=== PATIENT | male | born 1955 | race Caucasian/White ===

== ENCOUNTER → 2016-12-03 | Outpatient (CLI) | payer OTHER ==
[~2016-12-03] MED LIST: ANTIVERT 25MG25 MG PO; ASPIRIN 81M81 MG/TA2 PO; TRIBENZOR 5 MG; VALIUM 5MG T5 MG/TAB PO; ZOFRAN 4MG T4 MG/TAB PO
== END ==
LOC: COL.RAD 08:59
DX: C61 Malignant neoplasm of prostate (principal)
CPT/HCPCS: A9503

== ENCOUNTER 2018-12-12 16:21 | Observation (INO) | payer OTHER ==
[~2018-12-12 16:21] MED LIST changes: +AMBIEN 10MG10 MG PO; +ASPIRIN E.C. 8181 MG PO; +BRILINTA90 MG PO; +HYZAAR 25 MG-101 TAB PO; +IMDUR 30MG30 MG/TAB PO; +LIPITOR 10MG10 MG PO; +LIPITOR 40MG TA40 MG PO; +NITROSTAT0.4 MG/TAB SL; +NORVASC 5MG5 MG/TAB PO; +PROTONIX 40MG T40 MG PO; +TOPROL XL 50MG50 MG PO
[2018-12-12 16:42] LABS: BASO % 0.6 % (0.0-2.0); EOS # 0.1 (0.0-0.7); EOS % 1.7 % (0-4.0); GRAN % 56.2 % (42.2-75.2); HEMATOCRIT 42.3 % (42.0-52.0); HEMOGLOBIN 14.6 g/dl (13.5-18.0); LYMPH # 1.6 (1.2-3.4); LYMPH % 29.3 % (20.0-51.0); MEAN CELL VOLUME 91 fl (80.0-100.0); MEAN CORPUSCULAR HEMOGLOBIN 31 pg (27.0-31.0); MEAN CORPUSCULAR HGB CONC 35 g/dl (33.0-37.0); MEAN PLATELET VOLUME 10.1 fl (7.4-10.4); MONO # 0.6 (0.1-0.6); MONO % 11.3 % (1.7-9.3); PLATELET COUNT 213 K/mm3 (130-400); RED BLOOD COUNT 4.66 M/mm3 (4.20-5.60); REDCELL DISTRIBUTION WIDTH-CV 12.3 % (11.5-14.5)
[2018-12-12] MEDS ORDERED: THE MEDICINE S200 M2 PO (16:46)
[2018-12-12] MEDS ORDERED: VITAMIND3 5000 PO (16:46)
[2018-12-12] MEDS ORDERED: PLAVIX 75MG TAB75 MG PO (16:46)
[2018-12-12] MEDS ORDERED: IMDUR 60MG60 MG/TAB PO (16:46)
[2018-12-12 16:47] LABS: PROTHROMBIN TIME 11.2 SECONDS (9.7-12.8)
[2018-12-12] MEDS ORDERED: NORVASC 5MG5 MG/TAB PO (16:47)
[2018-12-12] MEDS ORDERED: HYZAAR 25 MG-101 TAB PO (16:48)
[2018-12-12 16:51] LABS: ALANINE AMINOTRANSFERASE 35 U/L (21-72); ALBUMIN 4.4 gm/dL (3.5-5.0); ALKALINE PHOSPHATASE 67 U/L (50-136); ANION GAP 9 mmol/L (7-16); AST,SGOT 33 U/L (15-37); BILIRUBIN,TOTAL 0.8 mg/dL (0.0-1.0); BLOOD UREA NITROGEN 14 mg/dL (9-20); CALCIUM 9.1 mg/dL (8.4-10.2); CARBON DIOXIDE 27 mmol/L (22-30); CHLORIDE 103 mmol/L (98-107); CREATININE, serum 0.66 mg/dL (0.66-1.25); GLUCOSE 136 mg/dL (74-106); POTASSIUM 3.7 mmol/L (3.4-5.0); SODIUM 139 mmol/L (137-145); TOTAL PROTEIN 7.1 gm/dL (6.4-8.2)
[2018-12-12 17:08] LABS: TROPONIN-I < 0.012 ng/mL (0.000-0.035)
[2018-12-12] MEDS ORDERED: TOPROL XL 50MG50 MG PO (19:06)
[2018-12-12] MEDS ORDERED: ASPIRIN E.C. 8181 MG PO (19:06)
[2018-12-12 20:00] VITALS: PULSE 60
[2018-12-12 20:37] VITALS: PULSE 60
--- NOTE | 2018-12-12 21:00 | NUR ---
Admitted from the ER with dx; chest pain,, Denies chest pain at this time- in room, IV fluids of NS at 30cc/hr, eating some supper, will be NPO after MN for heart cath
[2018-12-12 22:03] VITALS: BP 142/69; PULSE 76; TEMP 97.9
[2018-12-13] VITALS (13 sets, daily range): BP systolic 107–154; BP diastolic 50–80; PULSE 64–75; TEMP 97.5–98.2
--- NOTE | 2018-12-13 05:27 | NUR ---
NPO- slept well, quiet night- Tele on, no chest pain
[2018-12-13 06:42] LABS: BASO % 0.7 % (0.0-2.0); EOS # 0.1 (0.0-0.7); GRAN # 2.5 (1.4-6.5); GRAN % 55.9 % (42.2-75.2); HEMATOCRIT 40.2 % (42.0-52.0); HEMOGLOBIN 13.7 g/dl (13.5-18.0); LYMPH # 1.1 (1.2-3.4); LYMPH % 24.4 % (20.0-51.0); MEAN CELL VOLUME 91 fl (80.0-100.0); MEAN CORPUSCULAR HEMOGLOBIN 31 pg (27.0-31.0); MEAN CORPUSCULAR HGB CONC 34 g/dl (33.0-37.0); MEAN PLATELET VOLUME 9.8 fl (7.4-10.4); MONO # 0.7 (0.1-0.6); MONO % 16.1 % (1.7-9.3); PLATELET COUNT 200 K/mm3 (130-400); REDCELL DISTRIBUTION WIDTH-CV 12.1 % (11.5-14.5)
[2018-12-13 06:56] LABS: ALBUMIN 3.8 gm/dL (3.5-5.0); BILIRUBIN,TOTAL 0.8 mg/dL (0.0-1.0); CALCIUM 8.9 mg/dL (8.4-10.2); CHOLESTEROL RISK RATIO 3.4; CREATININE, serum 0.62 mg/dL (0.66-1.25); POTASSIUM 3.8 mmol/L (3.4-5.0); TOTAL PROTEIN 6.4 gm/dL (6.4-8.2)
--- NOTE | 2018-12-13 07:00 | NUR ---
Reported on to Phoebe CLEARY
--- NOTE | 2018-12-13 08:15 | NUR ---
Shift assessment completed; IV site on left hand CDI, NS @30ml/hr; telemetry on; denies prescence of pain
--- NOTE | 2018-12-13 08:30 | NUR ---
Refused hydrochlorothiazide 25mg tab/losartan 50mg tab (100mg), pt. states he normally takes this medication daily at 2100; Refused Docusate Sodium 100mg cap; Reported to primary nurse, Phoebe CLEARY
--- NOTE | 2018-12-13 10:00 | NUR ---
THis RN reviewed student nurse's documentation and agrees with physical assessment findings. Pt has no edema.
--- NOTE | 2018-12-13 11:47 | NUR ---
ALL SEDATION MEDICATIONS GIVEN WITH VERBAL ORDER FROM MD JONES. SEE MERGE FOR ADMIN TIMES. SEE MERGE FOR RASS AND MODERATE SEDATION ASSESSMENTS DURING AND POST PROCEDURE.
--- NOTE | 2018-12-13 13:30 | NUR ---
pt returned to room,alert, conversing, A+Ox3. Vitals stable. Rt radial site free of redness, swelling, stop in place, cap refill brisk with figners sensation intact. IV site free of redness, swelling. Will contiue to monitor, call light in reach, at bedside
--- NOTE | 2018-12-13 15:40 | NUR ---
No bleeding at rt wrist, cap refill brisk, continuing to monitor
--- NOTE | 2018-12-13 15:52 | NUR ---
SW met with patient and about discharge plans. Patient was sleeping, answered all questions. Patient lives independently at home with his and plans to return there upon discharge. Patient's PCP is Dr Ellen Sandoval and he obtains prescriptions from [facility]. Patient does not use any home health services or DME. Patient does not have a DPOA and is not interested in completing one that this time. SW does not anticipate any discharge needs.
--- NOTE | 2018-12-13 17:04 | NUR ---
This RN released remaining pressure to hemostat on Rt radial site, there is no active bleeding, no swelling or redness to wrist. cap refill brisk, pt has full mobility in figners. Pt denies SOB, dizzines. No further needs,
--- NOTE | 2018-12-13 19:20 | NUR ---
Report given to Nancy CLEARY, pt denies needs. C/o ache to rt wrist, site has no active bleed, slightly swollen along vein but no notable swelling no redness, cap refill brisk. Pt ate dinner 100%, walked halls with , returned to room with call lili ramirez
--- NOTE | 2018-12-13 20:30 | NUR ---
Initial shift assessment done- denies pain, denies chest pain/SOB, states right arm slightly sore from heart cath-denies need for pain meds at this time, requesting an ice bag for right arm-- VSS, Tele on, right radial site- no hematoma, no bleeding, open to air
[2018-12-14 00:14] VITALS: BP 124/64; PULSE 70
[2018-12-14 05:03] VITALS: BP 119/69; PULSE 69; TEMP 98.2
--- NOTE | 2018-12-14 06:05 | NUR ---
Slpet well, no requests, right radial site soft, no hematoma- overall slight swelling of lower arm- pt states no pain
[2018-12-14 07:21] VITALS: BP 124/69; PULSE 64; TEMP 98.3
[2018-12-14] MEDS ORDERED: EFFIENT10 MG PO (07:26)
[2018-12-14] MEDS ORDERED: LIPITOR 40MG TA40 MG PO (07:26)
[2018-12-14] MEDS ORDERED: ASPIRIN E.C. 8181 MG PO (07:27)
[2018-12-14] MEDS ORDERED: TOPROL XL 50MG50 MG PO (07:27)
[2018-12-14 08:10] LABS: CALCIUM 9.1 mg/dL (8.4-10.2); CREATININE, serum 0.71 (0.66-1.25); POTASSIUM 4.2 mmol/L (3.4-5.0)
--- NOTE | 2018-12-14 10:07 | NUR ---
Initial visit; Patient and his thanked Wire Steward for looking in on him and wishing him well as he is about to be discharged.
--- NOTE | 2018-12-14 11:48 | NUR ---
Patient discharged at 1045 accompanied by and to car with [facility] staff. Declined wheelchair and wished to ambulate.
== END 2018-12-14 10:45 | disposition home or self-care (01) ==
LOC: COL.ER 16:21 → MEDICAL 17:54
PROVIDERS: Family Medicine; Nurse Practitioner Family; ADMIT Hospitalist
DX: I25.110 Atherosclerotic heart disease of native coronary artery with unstable angina pectoris (principal); I10 Essential (primary) hypertension; E78.5 Hyperlipidemia, unspecified; E66.9 Obesity, unspecified; I25.2 Old myocardial infarction; Z85.46 Personal history of malignant neoplasm of prostate; K21.9 Gastro-esophageal reflux disease without esophagitis; Z79.02 Long term (current) use of antithrombotics/antiplatelets; Z79.82 Long term (current) use of aspirin; Z92.3 Personal history of irradiation; Z82.49 Family history of ischemic heart disease and other diseases of the circulatory system; Z88.5 Allergy status to narcotic agent; Z88.8 Allergy status to other drugs, medicaments and biological substances; Z88.6 Allergy status to analgesic agent
CPT/HCPCS: C1725; C1769; C1874; C1887; C9600; G0378; J1644; J1650; J2250; J3010; J7030; J7040; Q9967

== ENCOUNTER 2020-01-22 10:12 | Emergency (ER) | payer BC ==
[~2020-01-22] VITALS: Ht 180.3 cm; Wt 112.4 kg
[~2020-01-22 10:12] MED LIST changes: +EFFIENT10 MG PO; +IMDUR 60MG60 MG/TAB PO; +PLAVIX 75MG TAB75 MG PO; +THE MEDICINE S200 M2 PO; +VITAMIND3 5000 PO
[2020-01-22 10:15] VITALS: TEMP 98
[2020-01-22 10:40] LABS: HEMOGLOBIN 12.1 g/dl (13.5-18.0); MEAN CELL VOLUME 93 fl (80.0-100.0); MEAN CORPUSCULAR HEMOGLOBIN 31 pg (27.0-31.0); MEAN CORPUSCULAR HGB CONC 34 g/dl (33.0-37.0); MEAN PLATELET VOLUME 9.7 fl (7.4-10.4); PLATELET COUNT 207 K/mm3 (130-400); RED BLOOD COUNT 3.87 M/mm3 (4.20-5.60); REDCELL DISTRIBUTION WIDTH-CV 13.2 % (11.5-14.5)
[2020-01-22 10:45] LABS: PROTHROMBIN TIME 11.2 SECONDS (9.7-12.8)
[2020-01-22 10:47] LABS: PARTIAL THROMBOPLASTIN TIME 18.8 SECONDS (26.0-37.0)
[2020-01-22 10:49] LABS: ALANINE AMINOTRANSFERASE 29 U/L (4-49); ALBUMIN 4.5 gm/dL (3.5-5.0); ALKALINE PHOSPHATASE 65 U/L (50-136); ANION GAP 8 mmol/L (7-16); AST,SGOT 30 U/L (15-37); BLOOD UREA NITROGEN 16 mg/dL (9-20); CALCIUM 9.6 mg/dL (8.4-10.2); CARBON DIOXIDE 27 mmol/L (22-30); CHLORIDE 102 mmol/L (98-107); CREATININE, serum 0.56 (0.66-1.25); GLUCOSE 118 mg/dL (74-106); POTASSIUM 3.6 mmol/L (3.4-5.0); SODIUM 137 mmol/L (137-145); TOTAL PROTEIN 7.3 gm/dL (6.4-8.2)
[2020-01-22 11:03] LABS: TROPONIN-I < 0.012 ng/mL (0.000-0.035)
[2020-01-22 11:30] LABS: BAND 1 % (0-10); EOSINOPHIL 4 % (0-4); LYMPHOCYTE 10 % (20.0-51.0); NEUTROPHILS 81 % (42.0-75.2); PLATELET ESTIMATE NORMAL (NORMAL)
[2020-01-22 13:13] VITALS: BP 145/88; PULSE 77
== END 2020-01-22 13:14 | disposition home or self-care (01) ==
LOC: COL.ER 10:12
PROVIDERS: Family Medicine
DX: I20.9 Angina pectoris, unspecified (principal); R06.00 Dyspnea, unspecified; Z79.82 Long term (current) use of aspirin

== ENCOUNTER 2023-05-25 15:00 | Outpatient (RCR) | payer SELFPAY | END 2023-06-18 | disposition home or self-care (01) | LOC: MKS.ESL.PT | DX: E11.40 Type 2 diabetes mellitus with diabetic neuropathy, unspecified (principal) ==

== ENCOUNTER 2023-06-08 15:15 | Outpatient (RCR) | payer BC, OTHER | END 2023-06-18 | disposition home or self-care (01) | LOC: MKS.ESL.PT | DX: E11.40 Type 2 diabetes mellitus with diabetic neuropathy, unspecified (principal) ==

== ENCOUNTER → 2023-08-17 13:57 | Outpatient (RCR) | payer BC, OTHER | LOC: MKS.ESL.PT 06-19 14:30 | DX: E11.40 Type 2 diabetes mellitus with diabetic neuropathy, unspecified (principal) ==